=== PATIENT | male | born 1955 | race Caucasian/White ===

== ENCOUNTER 2016-10-13 09:43 | Inpatient (IN) | payer OTHER ==
[~2016-10-13] VITALS: Ht 175.3 cm; Wt 109.7 kg
[~2016-10-13 09:43] MED LIST: AMITRIPTYLINE H50 MG PO; ANTIBIOTIC; ASPIRIN325 MG PO; ATORVASTATIN CA80 MG PO; CEFTIN500 MG PO; CELEBREX200 MG PO; DIAZEPAM5 MG PO; FLEXERIL10 MG PO; FLEXERIL5 MG PO; FUTURO RESTORI1 EACH MC; GABAPENTIN600 MG PO; GLUCOSA-CHOND-1 EACH PO; HYDROCHLOROTH12.5 M3 PO; LAMICTAL100 MG PO; LASIX20 MG PO; LO-DOSE ASPIRIN81 M1 PO; METHADONE HCL40 MG PO; METHADONE10 MG PO; METOPROLOL TART25 MG PO; NAPROSYN500 MG PO; ONE DAILY COMP1 EAC1 PO; PRAZOSIN HCL1 MG PO; PRILOSEC40 MG PO; TAMSULOSIN HCL0.4 MG PO; TRAMADOL HCL50 MG PO; ZOCOR80 MG PO
[2016-10-13 10:36] LABS: BASOPHIL COUNT 0.1 K/uL (0-0.1); EOSINOPHIL (%) 2.3 % (0-5); EOSINOPHIL COUNT 0.1 K/uL (0-0.3); HEMATOCRIT 38.3 % (38.0-50.0); IMMATURE GRANULOCYTE (%) 0.8 % (0.0-0.7); INSTRUMENT ABS NEUTROPHIL CT 3.1 K/uL; LYMPHOCYTE COUNT 1.1 K/uL (1.0-2.8); MCHC 32.9 G/DL (30.0-36.0); MCV 91.2 FL (86-99); MEAN PLAT.VOLUME 9.6 uM^3 (9.0-12.4); MONOCYTE (%) 6.5 % (3-12); MONOCYTE COUNT 0.3 K/uL (0-0.8); NEUTROPHIL (%) 65.6 % (45-76); NEUTROPHIL COUNT 3.1 K/uL (1.8-6.4); PLATELET COUNT 260 K/uL (156-360); RBC DIS.WIDTH-CV 13.2 % (11.8-14.6); RBC DIS.WIDTH-SD 44.6 % (39-53); WHITE BLOOD COUNT 4.8 K/uL (4.1-10.2)
[2016-10-13 10:46] LABS: CHLORIDE 109 mEq/L (99-109); SODIUM 140 mEq/L (136-147)
[2016-10-13 10:48] LABS: GLUCOSE 111 mg/dL (70-99)
[2016-10-13 10:49] LABS: ANION GAP 9 MEQ/L (2-14)
[2016-10-13 10:52] LABS: GFR ESTIMATE (CALCULATED) > 59 mL/min/; UREA NITROGEN (BUN) 14 mg/dL (9-23)
[2016-10-13 12:52] LABS: TOTAL BILIRUBIN 0.2 mg/dL (0.0-1.0)
[2016-10-13 12:53] LABS: ALKALINE PHOSPHATASE 66 IU/L (3-129)
[2016-10-13 12:56] LABS: DIRECT BILIRUBIN 0.1 mg/dL (0.0-0.3)
[2016-10-13] MEDS ORDERED: METHADONE H5 MG/5 ML PO (13:51)
[2016-10-13] MEDS ORDERED: GABAPENTIN400 MG PO (13:52)
[2016-10-13] MEDS ORDERED: BENADRYL25 MG PO (13:54)
[2016-10-13] MEDS ORDERED: QUETIAPINE FUM100 MG PO (13:55)
[2016-10-13] MEDS ORDERED: BUPROPION XL300 MG PO (13:55)
[2016-10-13 15:21] VITALS: BP 158/72
[2016-10-13 20:15] VITALS: BP 134/65
[2016-10-13 23:55] VITALS: BP 137/78
[2016-10-14 04:32] VITALS: BP 140/77
[2016-10-14 07:37] VITALS: BP 132/67
[2016-10-14 10:26] LABS: HEMATOCRIT 36.6 % (38.0-50.0); MCH 30.3 PG (29.0-34.0); MCHC 32.2 G/DL (30.0-36.0); MCV 93.8 FL (86-99); PLATELET COUNT 234 K/uL (156-360); RBC DIS.WIDTH-CV 13.4 % (11.8-14.6)
[2016-10-14 10:51] LABS: ANION GAP 6 MEQ/L (2-14); CHLORIDE 106 MEQ/L (99-109); GFR ESTIMATE (CALCULATED) > 59 mL/min/; GLUCOSE 124 mg/dL (70-99); POTASSIUM 4.2 MEQ/L (3.7-5.4); SAMPLE HEMOLYSIS CHECK 0; SAMPLE ICTERIC CHECK 0; SAMPLE LIPEMIA CHECK 0; SODIUM 137 MEQ/L (136-147); UREA NITROGEN (BUN) 13 mg/dL (9-23)
[2016-10-14 15:53] VITALS: BP 145/80
[2016-10-14 20:36] VITALS: BP 160/75
[2016-10-15 00:06] VITALS: BP 149/77
[2016-10-15 04:00] VITALS: BP 141/78
[2016-10-15 07:56] VITALS: BP 139/63
[2016-10-15 07:58] VITALS: BP 112/55
[2016-10-15 12:27] VITALS: BP 148/70
[2016-10-15 16:31] VITALS: BP 148/62
[2016-10-15 23:33] LABS: ADD MIUA? YES; BILIRUBIN NEGATIVE; BLOOD SMALL; COLOR STRAW ((YELLOW)); GLUCOSE (STRIP) NEGATIVE; KETONES NEGATIVE; LEUKOCYTES NEGATIVE; NITRITE NEGATIVE; PROTEIN (STRIP) NEGATIVE; SPECIFIC GRAVITY 1.009 (1.000-1.030); UROBILINOGEN 0.2 MG/DL (0.2-1.0)
[2016-10-15 23:35] LABS: BACTERIA RARE /HPF; EPITHELIAL CELLS NONE SEEN /HPF; MUCUS NONE SEEN /LPF; RED BLOOD CELLS 0-5 /HPF (0-5); WHITE BLOOD CELLS 0-5 /HPF (0-5)
[2016-10-16 00:16] VITALS: BP 155/78
[2016-10-16 04:57] VITALS: BP 115/65
[2016-10-16 07:32] VITALS: BP 123/74
[2016-10-16 11:51] VITALS: BP 149/74
[2016-10-16 15:29] VITALS: BP 125/65
[2016-10-16 23:27] VITALS: BP 231/111
[2016-10-17 01:05] VITALS: BP 150/76
[2016-10-17 04:11] VITALS: BP 116/68
[2016-10-17 07:17] VITALS: BP 120/75
[2016-10-17 15:35] VITALS: BP 137/63
[2016-10-17 23:00] VITALS: BP 171/80
[2016-10-18 07:22] VITALS: BP 144/78
[2016-10-18] MEDS ORDERED: DOCUSATE SODIU100 MG PO (07:40)
[2016-10-18] MEDS ORDERED: POLYETHYLENE GL17 GM PO (07:41)
[2016-10-18] MEDS ORDERED: PERCOCET 5/31 TABLET PO (09:54)
[2016-10-18 16:18] VITALS: BP 150/72
== END 2016-10-18 17:15 | disposition home or self-care (01) | DRG 184 ==
LOC: EME → EDBD 09:43 → EDOF 13:40 → 3EAST 14:51
PROVIDERS: Emergency Medicine; Physician Assistant
DX: S22.41XA Multiple fractures of ribs, right side, initial encounter for closed fracture (principal); S27.0XXA Traumatic pneumothorax, initial encounter; S40.011A Contusion of right shoulder, initial encounter; W10.9XXA Fall (on) (from) unspecified stairs and steps, initial encounter; K83.8 Other specified diseases of biliary tract; G89.29 Other chronic pain; M25.551 Pain in right hip; M48.07 Spinal stenosis, lumbosacral region; K59.00 Constipation, unspecified; K21.9 Gastro-esophageal reflux disease without esophagitis; I10 Essential (primary) hypertension; E78.5 Hyperlipidemia, unspecified; J44.9 Chronic obstructive pulmonary disease, unspecified; F31.9 Bipolar disorder, unspecified; F41.0 Panic disorder [episodic paroxysmal anxiety]; G40.909 Epilepsy, unspecified, not intractable, without status epilepticus; K76.89 Other specified diseases of liver; F17.200 Nicotine dependence, unspecified, uncomplicated; Z71.6 Tobacco abuse counseling; Z79.891 Long term (current) use of opiate analgesic
CPT/HCPCS: 71010; 71020; 72132; 72146; 72148; 72195; 73030; 74000; 74020; 74177; 76700; 80048; 80076; 81003; 85025; 85027; 97530 GP; 99281; 99285; G0378; G8978 GP CI; G8979 GP CH; J1170; J1644; J1885; J2270; J7030

== ENCOUNTER 2018-01-06 15:18 | Emergency (ER) | payer OTHER ==
[~2018-01-06] VITALS: Ht 175.3 cm; Wt 107.8 kg
[~2018-01-06 15:18] MED LIST changes: +BENADRYL25 MG PO; +BUPROPION XL300 MG PO; +DOCUSATE SODIU100 MG PO; +GABAPENTIN400 MG PO; +METHADONE H5 MG/5 ML PO; +PERCOCET 5/31 TABLET PO; +POLYETHYLENE GL17 GM PO; +QUETIAPINE FUM100 MG PO
[2018-01-06 16:42] LABS: HEMATOCRIT 42.3 % (38.0-50.0); MCH 30.6 PG (29.0-34.0); MCHC 33.1 G/DL (30.0-36.0); MCV 92.4 FL (86-99); PLATELET COUNT 235 K/uL (156-360); RBC DIS.WIDTH-CV 13.2 % (11.8-14.6); RBC DIS.WIDTH-SD 45.1 % (39-53); RED BLOOD COUNT 4.58 M/uL (4.00-5.50); WHITE BLOOD COUNT 7.8 K/uL (4.1-10.2)
[2018-01-06 16:49] LABS: ALBUMIN 3.8 g/dL (3.2-4.8); CHLORIDE 103 mEq/L (99-109); POTASSIUM 4.5 mEq/L (3.7-5.4); SODIUM 140 mEq/L (136-147)
[2018-01-06 16:52] LABS: GLUCOSE 101 mg/dL (70-99); TOTAL PROTEIN 7.6 g/dL (6.4-8.3)
[2018-01-06 16:54] LABS: TOTAL BILIRUBIN 0.4 mg/dL (0.0-1.0)
[2018-01-06 16:55] LABS: ALKALINE PHOSPHATASE 87 IU/L (3-129); CREATININE 1.5 mg/dL (0.6-1.3); GFR ESTIMATE (CALCULATED) 51 mL/min/ (58.99-99999)
[2018-01-06 16:56] LABS: UREA NITROGEN (BUN) 27 mg/dL (9-23)
[2018-01-06 16:57] LABS: AST (GOT) 29 IU/L (2-34)
[2018-01-06 16:58] LABS: ALT (GPT) 34 IU/L (3-49)
[2018-01-06 17:06] LABS: TROP-I INTERPRETATION NEGATIVE; TROPONIN-I < 0.01 ng/mL (0.0-0.30)
[2018-01-06 17:28] LABS: SOURCE URINE
[2018-01-06 17:30] LABS: APPEARANCE CLEAR ((CLEAR)); BILIRUBIN NEGATIVE; BLOOD NEGATIVE; COLOR YELLOW ((YELLOW)); GLUCOSE (STRIP) NEGATIVE; KETONES NEGATIVE; LEUKOCYTES NEGATIVE; NITRITE NEGATIVE; PROTEIN (STRIP) 30; SPECIFIC GRAVITY 1.025 (1.000-1.030); UCUL ADDED? NO; UROBILINOGEN 0.2 MG/DL (0.2-1.0)
[2018-01-06 18:05] VITALS: BP 131/72
[2018-01-07 13:49] LABS: CHLAMYDIA TRACHOMATIS NEGATIVE; NEISSERIA GONORRHOEAE NEGATIVE
== END 2018-01-06 18:07 | disposition home or self-care (01) ==
LOC: EME 15:18
PROVIDERS: Nurse Practitioner Family
DX: N50.812 Left testicular pain (principal); R35.0 Frequency of micturition; R07.89 Other chest pain; I10 Essential (primary) hypertension; E78.5 Hyperlipidemia, unspecified; J44.9 Chronic obstructive pulmonary disease, unspecified; K21.9 Gastro-esophageal reflux disease without esophagitis; G43.909 Migraine, unspecified, not intractable, without status migrainosus; R56.9 Unspecified convulsions; F41.9 Anxiety disorder, unspecified; F32.9 Major depressive disorder, single episode, unspecified; F31.9 Bipolar disorder, unspecified; F41.0 Panic disorder [episodic paroxysmal anxiety]; F17.290 Nicotine dependence, other tobacco product, uncomplicated; Z79.891 Long term (current) use of opiate analgesic; Z88.0 Allergy status to penicillin; Z88.1 Allergy status to other antibiotic agents
CPT/HCPCS: 71046; 76870; 80053; 81003; 84484; 85027; 87491; 87591; 93005; 99281; 99283